=== PATIENT | female | born 1940 | race Caucasian/White ===

== ENCOUNTER 2017-12-16 11:21 | Emergency (ER) | payer OTHER ==
[~2017-12-16] VITALS: Ht 165.1 cm; Wt 74.8 kg
[~2017-12-16 11:21] MED LIST: ACETAMINOPHEN-1 EAC1 PO; ASPIR 8181 MG PO; BISACODYL10 MG RECTAL; COLACE 100 MG100 MG PO; FLEXERIL PO; LEVAQUIN 500 M500 M2 PO; MIRALAX17 GM PO; NOHOMEMEDICATIONS; NORCO 5-325 TA1 EACH PO; PREDNISONE 10 M10 MG PO; PROTONIX40 M1 PO; TRAMADOL 50 MG50 MG PO
[2017-12-16 12:20] LABS: ABSOLUTE BASOPHILS 0.1 thou/uL (0.0-0.2); ABSOLUTE EOSINOPHILS 0.1 thou/uL (0.0-0.7); ABSOLUTE MONOCYTES 0.3 thou/uL (0.0-1.2); ABSOLUTE NEUTROPHILS 4.6 thou/uL (1.6-8.1); BASOPHILS 1.3 %; EOSINOPHILS 1.3 %; HEMATOCRIT 41.9 % (37.0-47.0); HEMOGLOBIN 14.5 gm/dL (12.0-15.0); LYMPHOCYTES 28.9 %; MCH 31.2 pg (26.0-34.0); MCHC 34.7 g/dL (28.0-37.0); MCV 90.1 fL (80.0-100.0); NUCLEATED RBCS 0 /100WBC; PLATELET COUNT* 190 thou/uL (150-400); POLYS 64.5 %; RBC 4.65 mil/uL (4.20-5.00); RDW-CV 12.7 % (10.5-14.5); WBC 7.1 thou/uL (4.0-11.0)
[2017-12-16 12:26] LABS: APTT 26.2 Seconds (25.0-31.3); INR 1.1; PROTIME 10.4 Seconds (9.20-11.50)
[2017-12-16 12:26] LABS: URINE BILIRUBIN NEGATIVE (Negative); URINE BLOOD NEGATIVE (Negative); URINE CLARITY CLEAR; URINE COLOR YELLOW; URINE GLUCOSE-RANDOM NEGATIVE (Negative); URINE KETONES NEGATIVE (Negative); URINE LEUKOCYTES-REFLEX TRACE (Negative); URINE NITRITE-REFLEX NEGATIVE (Negative); URINE PROTEIN NEGATIVE (Negative); URINE SPECIFIC GRAVITY <= 1.005 (1.005-1.030); URINE UROBILINOGEN 0.2 E.U./dl (0.2-1.0)
[2017-12-16 12:28] LABS: ANION GAP 8 mmol/L (7-16); BUN 13 mg/dL (7-18); CALCIUM 8.8 mg/dL (8.5-10.1); CHLORIDE 106 mmol/L (98-107); CO2 27 mmol/L (21-32); CREATININE 0.8 mg/dL (0.6-1.3); GLUCOSE 99 mg/dL (70-99); POTASSIUM 3.8 mmol/L (3.5-5.1); SODIUM 141 mmol/L (136-145)
[2017-12-16 12:34] LABS: CASTS None Seen /LPF (None Seen); CRYSTALS None Seen /LPF (None Seen); SQUAMOUS 0-3 Few /LPF (0-3); URINE RBC None Seen /HPF (0-2); URINE WBC-REFLEX 0-5 Rare /HPF (0-5)
[2017-12-16 12:36] LABS: ALBUMIN 3.7 g/dL (3.4-5.0); ALKALINE PHOSPHATASE 36 U/L (46-116); SGOT 15 U/L (15-37); SGPT 19 U/L (30-65); TOTAL BILIRUBIN 0.5 mg/dL (<0.1-1.0); TROPONIN-I LEVEL <0.06 ng/mL (<0.06)
[2017-12-16 14:16] VITALS: BP 131/62
--- NOTE | 2017-12-17 12:37 | EKG ---
[place] [address] ELECTROCARDIOGRAM REPORT Name: DAVIDJUNIOR Landry Room: [facility]#: [id number] Admission: 12/16/17 Attend Phys: Discharge: 12/16/17 Date of : 44 Report #: [id number] THIS REPORT FOR: //name// [facility] ED Test Date: 2017-12-16 Test Time: 11:31:42 Pat Name: JUNIOR HERNANDEZ Department: Room: Gender: F Pt Sitter: CHELE : 1940 Requested By: Latesha Lindsay Order Number: [id number] Reading MD: Norris Saleh Measurements Intervals [place] Rate: 59 P: 33 NV: 172 QRS: 27 QRSD: 96 T: 48 QT: 459 QTc: 455 Interpretive Statements Sinus rhythm Probable left atrial enlargement Compared to ECG 12/01/2015 11:18:05 No significant changes Electronically Signed On 12-17-2017 12:37:02 CDT by Norris Saleh [email or web address] <ELECTRONICALLY SIGNED> By: Norris Saleh MD, [facility] 12/17/17 1237 1131 30 Norris Saleh MD, FACC /EPI
== END 2017-12-16 14:17 | disposition home or self-care (01) ==
LOC: M.ERS 11:21
PROVIDERS: Personal Emergency Response Attendant
DX: H57.8 Other specified disorders of eye and adnexa (principal); R53.1 Weakness; Z90.710 Acquired absence of both cervix and uterus; Z86.73 Personal history of transient ischemic attack (TIA), and cerebral infarction without residual deficits; Z88.5 Allergy status to narcotic agent; Z91.040 Latex allergy status

== ENCOUNTER → 2019-07-02 | Outpatient (CLI) | payer OTHER | LOC: M.ULTRA 08:49 | DX: N39.0 Urinary tract infection, site not specified (principal); Z79.82 Long term (current) use of aspirin; Z79.899 Other long term (current) drug therapy; Z87.442 Personal history of urinary calculi ==

== ENCOUNTER 2020-06-12 09:13 | Emergency (ER) | payer MEDICARE ==
[~2020-06-12] VITALS: Ht 165.1 cm; Wt 67.6 kg
[2020-06-12] MEDS ORDERED: ZOFRAN ODT4 MG DISSOLVE (10:56)
[2020-06-12] MEDS ORDERED: PERCOCET 5-3251 EACH PO (10:56)
[2020-06-12 11:19] VITALS: BP 140/73
== END 2020-06-12 11:19 | disposition home or self-care (01) ==
LOC: M.ERS 09:13
DX: S30.0XXA Contusion of lower back and pelvis, initial encounter (principal); Z90.710 Acquired absence of both cervix and uterus; Z87.01 Personal history of pneumonia (recurrent); Z88.5 Allergy status to narcotic agent; Z91.040 Latex allergy status; X50.9XXA Other and unspecified overexertion or strenuous movements or postures, initial encounter; Y93.89 Activity, other specified; Y92.89 Other specified places as the place of occurrence of the external cause; Y99.8 Other external cause status

== ENCOUNTER → 2020-07-02 | Outpatient (CLI) | payer MEDICARE ==
[~2020-07-02] MED LIST changes: +PERCOCET 5-3251 EACH PO; +ZOFRAN ODT4 MG DISSOLVE
== END ==
LOC: M.MRI 10:50
PROVIDERS: ATTEND Nurse Practitioner Family
DX: M51.26 Other intervertebral disc displacement, lumbar region (principal); M47.816 Spondylosis without myelopathy or radiculopathy, lumbar region; M51.36 Other intervertebral disc degeneration, lumbar region

== ENCOUNTER → 2020-07-10 | Outpatient (CLI) | payer MEDICARE ==
[2020-07-10 14:21] VITALS: BP 144/88
== END ==
LOC: M.INT 13:47
PROVIDERS: ATTEND Nurse Practitioner Family
DX: S22.088A Other fracture of T11-T12 vertebra, initial encounter for closed fracture (principal); W19.XXXA Unspecified fall, initial encounter; Y93.89 Activity, other specified; Y92.89 Other specified places as the place of occurrence of the external cause; Y99.8 Other external cause status; Z98.1 Arthrodesis status

== ENCOUNTER → 2020-07-14 | Outpatient (CLI) | payer MEDICARE ==
[~2020-07-14] VITALS: Ht 165.1 cm; Wt 66.7 kg
[2020-07-14 08:46] VITALS: BP 126/63
[2020-07-14 08:48] LABS: HEMATOCRIT 41.1 % (37.0-47.0); HEMOGLOBIN 14.5 gm/dL (12.0-15.0); MCH 32.2 pg (26.0-34.0); MCHC 35.2 g/dL (28.0-37.0); MCV 91.2 fL (80.0-100.0); MPV 7.7 fl. (7.2-11.1); RBC 4.51 mil/uL (4.20-5.00); RDW-CV 13.6 % (10.5-14.5)
[2020-07-14 08:55] LABS: CALCIUM 8.8 mg/dL (8.5-10.1); CREATININE 0.9 mg/dL (0.6-1.3)
[2020-07-14 08:58] LABS: APTT 22.9 Seconds (25.0-31.3); PROTIME 10.2 Seconds (9.20-11.50)
[2020-07-14 09:04] VITALS: BP 134/66
[2020-07-14 09:05] LABS: ALBUMIN 3.6 g/dL (3.4-5.0); TOTAL BILIRUBIN 0.4 mg/dL (<0.1-1.0); TOTAL PROTEIN 7.5 g/dL (6.4-8.2)
[2020-07-14 10:11] VITALS: BP 129/59
[2020-07-14 10:26] VITALS: BP 120/49
[2020-07-14 10:40] VITALS: BP 120/53
== END ==
LOC: M.INT 08:05
PROVIDERS: ATTEND Radiology Diagnostic Radiology
DX: S22.088A Other fracture of T11-T12 vertebra, initial encounter for closed fracture (principal); J43.9 Emphysema, unspecified; F17.210 Nicotine dependence, cigarettes, uncomplicated; Z90.710 Acquired absence of both cervix and uterus; Z98.890 Other specified postprocedural states; Z88.5 Allergy status to narcotic agent; Z91.040 Latex allergy status; Z88.8 Allergy status to other drugs, medicaments and biological substances; X58.XXXA Exposure to other specified factors, initial encounter; Y93.89 Activity, other specified; Y92.89 Other specified places as the place of occurrence of the external cause; Y99.8 Other external cause status

== ENCOUNTER → 2020-12-17 | Outpatient (CLI) | payer MEDICARE | LOC: M.RAD 09:00 | PROVIDERS: ATTEND Family Medicine | DX: M81.0 Age-related osteoporosis without current pathological fracture (principal); Z78.0 Asymptomatic menopausal state ==

== ENCOUNTER 2021-09-20 11:16 | Emergency (ER) | payer MEDICARE ==
[~2021-09-20] VITALS: Ht 165.1 cm; Wt 66.2 kg
[2021-09-20 13:09] LABS: INFLUENZA A ANTIGEN Negative (Negative); INFLUENZA B ANTIGEN Negative (Negative)
[2021-09-20 13:13] LABS: HEMATOCRIT 40.4 % (37.0-47.0)
[2021-09-20 13:15] LABS: HEMOGLOBIN 14.3 gm/dL (12.0-15.0); MCH 34.6 pg (26.0-34.0); MCHC 35.3 g/dL (28.0-37.0); RBC 4.12 mil/uL (4.20-5.00); RDW-CV 13.8 % (10.5-14.5); WBC 6.8 thou/uL (4.0-11.0)
[2021-09-20 13:23] LABS: CALCIUM 9.2 mg/dL (8.5-10.1); CREATININE 0.9 mg/dL (0.6-1.3); POTASSIUM 4.1 mmol/L (3.5-5.1)
[2021-09-20 13:28] LABS: ALBUMIN 3.5 g/dL (3.4-5.0); TOTAL BILIRUBIN 0.5 mg/dL (<0.1-1.0); TOTAL PROTEIN 7.9 g/dL (6.4-8.2)
[2021-09-20] MEDS ORDERED: PREDNISONE 20 M20 MG PO (14:35)
[2021-09-20] MEDS ORDERED: IPRAT-ALBUT 0.5-3 ML INH (14:36)
[2021-09-20 14:40] VITALS: BP 132/57
--- NOTE | 2021-09-21 12:27 | EKG ---
[place] [address] ELECTROCARDIOGRAM REPORT Name: JUNIOR HERNANDEZ Room: [facility]#: [id number] Admission: 09/20/21 Attend Phys: Discharge: 09/20/21 Date of : 44 Date of Service: 09/20/21 1138 Report #: [id number] THIS REPORT FOR: //name// [facility] ED Test Date: 2021-09-20 Test Time: 11:38:43 Pat Name: JUNIOR HERNANDEZ Department: Room: Gender: Emts: [facility] : 1940 Requested By: Mila Allen Order Number: [id number] : Bakari Cerrato Measurements Intervals [place] Rate: 85 P: 35 NM: 146 QRS: 46 QRSD: 83 T: 60 QT: 379 QTc: 451 Interpretive Statements Sinus rhythm Probable left atrial enlargement Compared to ECG 12/16/2017 11:31:42 No significant changes Electronically Signed On 09-21-2021 12:26:48 GRAIN SHOVELER by Bakari Cerrato [email or web address] <ELECTRONICALLY SIGNED> By: Bakari Cerrato MD, [facility] 09/21/21 1226 1138 1138 Bakari Cerrato MD, [facility] /EPI
== END 2021-09-20 14:45 | disposition home or self-care (01) ==
LOC: M.ERS 11:16
PROVIDERS: Physician Assistant
DX: J44.1 Chronic obstructive pulmonary disease with (acute) exacerbation (principal); Z20.822 Contact with and (suspected) exposure to COVID-19; Z90.710 Acquired absence of both cervix and uterus; Z79.899 Other long term (current) drug therapy; Z91.040 Latex allergy status; Z88.5 Allergy status to narcotic agent; Z88.6 Allergy status to analgesic agent

== ENCOUNTER 2021-11-11 10:05 | Inpatient (IN) | payer MEDICARE ==
[~2021-11-11] VITALS: Ht 165.1 cm; Wt 70.3 kg
[~2021-11-11 10:05] MED LIST changes: +IPRAT-ALBUT 0.5-3 ML INH; +PREDNISONE 20 M20 MG PO
[2021-11-11 10:10] VITALS: BP 147/78
[2021-11-11 10:40] LABS: URINE BILIRUBIN NEGATIVE (Negative); URINE BLOOD NEGATIVE (Negative); URINE CLARITY CLEAR; URINE COLOR YELLOW; URINE GLUCOSE-RANDOM NEGATIVE (Negative); URINE KETONES NEGATIVE (Negative); URINE LEUKOCYTES-REFLEX TRACE (Negative); URINE PROTEIN NEGATIVE (Negative); URINE SPECIFIC GRAVITY <= 1.005 (1.005-1.030); URINE UROBILINOGEN 0.2 E.U./dl (0.2-1.0)
[2021-11-11 10:41] LABS: URINE NITRITE-REFLEX POSITIVE (Negative)
[2021-11-11 10:41] LABS: CALCIUM 8.7 mg/dL (8.5-10.1); CREATININE 0.8 mg/dL (0.6-1.3)
[2021-11-11 10:42] LABS: HEMATOCRIT 46.2 % (37.0-47.0); HEMOGLOBIN 15.7 gm/dL (12.0-15.0); MCH 34.2 pg (26.0-34.0); MCV 100.5 fL (80.0-100.0); MPV 8.1 fl. (7.2-11.1); NUCLEATED RBCS 0 /100WBC; PLATELET COUNT* 117 thou/uL (150-400); RDW-CV 13.9 % (10.5-14.5)
[2021-11-11 10:45] LABS: WBC 1.6 thou/uL (4.0-11.0)
[2021-11-11 10:50] LABS: HYALINE CASTS 0-3 Few /LPF (None Seen); SQUAMOUS 4-10 Moderate /LPF (0-3); URINE WBC-REFLEX 6-15 Few /HPF (0-5)
[2021-11-11 10:50] LABS: ALBUMIN 3.8 g/dL (3.4-5.0); TOTAL BILIRUBIN 0.5 mg/dL (<0.1-1.0); TOTAL PROTEIN 7.2 g/dL (6.4-8.2)
[2021-11-11 10:51] LABS: CRYSTALS None Seen /LPF (None Seen); MUCUS 0-3 Light strn/LPF (None Seen); URINE RBC 3-10 Few /HPF (0-2)
[2021-11-11 11:11] LABS: ABSOLUTE LYMPHOCYTES 0.9 thou/uL (0.8-5.3); ABSOLUTE MONOCYTES 0.1 thou/uL (0.0-1.2); ABSOLUTE NEUTROPHILS 0.6 thou/uL (1.6-8.1)
[2021-11-11 11:12] LABS: PLATELET ESTIMATE ADEQUATE
--- NOTE | 2021-11-11 13:19 | EKG ---
[place] [address] ELECTROCARDIOGRAM REPORT Name: DAVIDJUNIOR Landry Room: [place] [address] ADM IN [facility]#: [id number] Admission: 11/11/21 Attend Phys: Mercedes Lozano, Discharge: Date of : 44 Date of Service: 11/11/21 1035 Report #: [id number] THIS REPORT FOR: //name// [facility] ED Test Date: 2021-11-11 Test Time: 10:35:52 Pat Name: JUNIOR HERNANDEZ Department: Room: [facility] Gender: F Insurance Administrator: ALEXIS : 1940 Requested By: Darnell Rodriguez Order Number: [id number] MD: Aaron Shukla Measurements Intervals [place] Rate: 63 P: 23 TN: 165 QRS: 27 QRSD: 88 T: 45 QT: 460 QTc: 471 Interpretive Statements Sinus rhythm Multiple ventricular premature complexes Probable left atrial enlargement Nonspecific T abnormalities, anterior leads Compared to ECG 09/20/2021 11:38:43 Ventricular premature complex(es) now present T-wave abnormality now present Electronically Signed On 11-11-2021 13:18:47 ON AIR TALENT by Aaron Shukla [email or web address] <ELECTRONICALLY SIGNED> By: Aaron Shukla MD, FACC 11/11/21 1318 1035 1035 Aaron Shukla MD, FAC /EPI
[2021-11-11 15:06] VITALS: BP 136/41
[2021-11-11 15:10] VITALS: BP 164/71
--- NOTE | 2021-11-11 19:34 | NUR ---
PT ADMITTED TO ROOM 205 VIA CART FROM ED AT APPROX 1510, REPORT RECEIVED FROM MARCELL GOETZ. PT AOX4 BUT FORGETFUL, ORIENTED TO ROOM AND CALL LIGHT, ENCOURAGED TO USE CALL LIGHT WHEN NEEDING TO GET UP. PT'S DAUGHTER CAME UP TO ROOM SHORTLY AFTER PT ARRIVAL, ADMISSION ASSESSMENT AND HX COMPLETED CHARTED, HOME MEDS UPDATED FAR PT AND DAUGHTER COULD REMEMBER. PT MADE DNR/DNI PER HER REQUEST.
[2021-11-11 21:50] VITALS: BP 145/52
[2021-11-12] VITALS: BP 121/64
[2021-11-12 04:00] VITALS: BP 132/46
[2021-11-12 05:08] LABS: ALBUMIN 3.1 g/dL (3.4-5.0); CALCIUM 8.2 mg/dL (8.5-10.1); CREATININE 0.8 mg/dL (0.6-1.3); MAGNESIUM 1.8 mg/dL (1.8-2.4); POTASSIUM 3.9 mmol/L (3.5-5.1); TOTAL BILIRUBIN 0.4 mg/dL (<0.1-1.0); TOTAL PROTEIN 5.8 g/dL (6.4-8.2)
[2021-11-12 07:54] LABS: HEMATOCRIT 31.4 % (37.0-47.0); MCH 35.1 pg (26.0-34.0); MCHC 34.8 g/dL (28.0-37.0); MCV 100.7 fL (80.0-100.0); MPV 8.1 fl. (7.2-11.1); RBC 3.12 mil/uL (4.20-5.00); RDW-CV 13.8 % (10.5-14.5)
[2021-11-12 07:59] LABS: HEMOGLOBIN 10.9 gm/dL (12.0-15.0)
[2021-11-12 08:00] VITALS: BP 103/75
[2021-11-12 08:00] LABS: WBC 1.9 thou/uL (4.0-11.0)
--- NOTE | 2021-11-12 09:13 | NUR ---
Nutrition: Pt admitted with UTI, back pain. Consult for poor intake. +small BMs. Wt near usual, 155#. Regular diet ordered. Albumin 3.1. RD will order Ensure Clear for added fliud and kcals. Encourage good hydration and fluid intake. Otherwise, mild nutrition risk.
[2021-11-12 12:00] VITALS: BP 138/53
--- NOTE | 2021-11-12 13:39 | NUR ---
CM ASSESSMENT ASSESSMENT COMPLETED WITH PT DAUGHTER (JULISSA [phone]). PT LIVES ALONE IN [place]. PT DAUGHTER LIVES TWO BLOCKS AWAY. PT DOES NOT USE ANY DME FOR MOBILITY. PT USES A NUBULIZER FOR COPD. PT IND WITH ADLS. PT DOES NOT HAVE ANY HX OF SNF, ARU, OR HH. PT NOT YET MED CLEAR, BUT CURRENT PLAN IS TO DC HOME WHEN CLEARED. CM TO FOLLOW.
[2021-11-12 16:00] VITALS: BP 133/55
[2021-11-12 20:30] VITALS: BP 152/56
[2021-11-12 23:03] LABS: ABSOLUTE LYMPHOCYTES 1.5 thou/uL (0.8-5.3); ABSOLUTE MONOCYTES 0.1 thou/uL (0.0-1.2); ABSOLUTE NEUTROPHILS 0.7 thou/uL (1.6-8.1); BASOPHILS 1.8 %; EOSINOPHILS 1.5 %; HEMATOCRIT 30.1 % (37.0-47.0); HEMOGLOBIN 10.4 gm/dL (12.0-15.0); LYMPHOCYTES 64.5 %; MCH 34.9 pg (26.0-34.0); MCHC 34.5 g/dL (28.0-37.0); MCV 101.1 fL (80.0-100.0); MONOCYTES 3.8 %; MPV 8.7 fl. (7.2-11.1); NUCLEATED RBCS 0 /100WBC; PLATELET COUNT* 131 thou/uL (150-400); POLYS 28.4 %; RBC 2.98 mil/uL (4.20-5.00); RDW-CV 13.7 % (10.5-14.5); WBC 2.4 thou/uL (4.0-11.0)
[2021-11-13] VITALS: BP 140/50
[2021-11-13 04:00] VITALS: BP 130/52
[2021-11-13 05:23] LABS: HEMATOCRIT 29.9 % (37.0-47.0); HEMOGLOBIN 10.4 gm/dL (12.0-15.0); MCH 35.1 pg (26.0-34.0); MCHC 34.6 g/dL (28.0-37.0); MCV 101.2 fL (80.0-100.0); RBC 2.95 mil/uL (4.20-5.00); RDW-CV 13.8 % (10.5-14.5)
[2021-11-13 05:50] LABS: CALCIUM 8.4 mg/dL (8.5-10.1); CREATININE 0.7 mg/dL (0.6-1.3); POTASSIUM 3.6 mmol/L (3.5-5.1)
--- NOTE | 2021-11-13 06:38 | NUR ---
Alert and oriented x 4 but she can be forgetful. She is up with stand by assist to the bathroom. She is voiding well. She did state that nadeen has back pain that she thinks is related to being constipated. It's been several days, possibly a week she says. I did her some miralax this am. Vitals are stable,heart rythm is sinus rythm. She has slept intermittenly.
[2021-11-13 08:00] VITALS: BP 161/50
[2021-11-13 09:31] LABS: ABSOLUTE LYMPHOCYTES 0.9 thou/uL (0.8-5.3); ABSOLUTE MONOCYTES 0.1 thou/uL (0.0-1.2); ABSOLUTE NEUTROPHILS 0.8 thou/uL (1.6-8.1); BASOPHILS 0.9 %; HEMATOCRIT 31.9 % (37.0-47.0); HEMOGLOBIN 11.2 gm/dL (12.0-15.0); LYMPHOCYTES 48.8 %; MCH 34.9 pg (26.0-34.0); MCHC 35.1 g/dL (28.0-37.0); MCV 99.6 fL (80.0-100.0); MONOCYTES 2.9 %; MPV 7.5 fl. (7.2-11.1); NUCLEATED RBCS 0 /100WBC; PLATELET COUNT* 128 thou/uL (150-400); POLYS 45.4 %; RBC 3.21 mil/uL (4.20-5.00); RDW-CV 13.9 % (10.5-14.5)
[2021-11-13 09:43] LABS: WBC 1.8 thou/uL (4.0-11.0)
[2021-11-13 12:00] VITALS: BP 154/72
--- NOTE | 2021-11-13 15:14 | NUR ---
CM FOLLOWUP PT NOT MED CLEAR. PT MAY NEED HH AT [place] AND REFERRED TO [facility] [phone]. CM TO FOLLOW.
[2021-11-13 16:26] VITALS: BP 144/59
[2021-11-13 20:00] VITALS: BP 151/64
[2021-11-14] VITALS: BP 149/62
[2021-11-14 04:00] VITALS: BP 126/57
--- NOTE | 2021-11-14 05:11 | NUR ---
Alert and oriented x 4. She is up with SBA to the BR. She said she feels much better since she had a BM yesterday.She does feeling better she states. She has slept well.
[2021-11-14 11:30] VITALS: BP 163/64
[2021-11-14 16:00] VITALS: BP 142/61
--- NOTE | 2021-11-14 18:07 | NUR ---
PT UP TO BATHROOM SEVERAL TIMES AND TAKING IN GOOD PO. PT CONTINUES ON IV ABXS. WILL CONTINUE TO ASSESS.
[2021-11-14 20:00] VITALS: BP 156/61
[2021-11-15] VITALS: BP 137/54
[2021-11-15 04:00] VITALS: BP 145/51
--- NOTE | 2021-11-15 04:59 | NUR ---
PATIENT SLEPT WELL DURING THIS SHIFT. PT ABLE TO REPOSITION HERSELF IN BED. PT UP TO BATHROOM WITH SLOW STEADY GAIT. PT WITH FLUIDS INFUSING PER DR ORDER. PT DENIES PAIN. PT ON ROOM AIR AND IS SR ON DIRECTOR COMPLIANCE. FREQUENTLY USED ITEMS AND CALL LIGHT WITHIN REACH. SIDERAILS UPX2. WILL CONTINUE TO MONITOR.
--- NOTE | 2021-11-15 07:25 | NUR ---
CHANGE OF SHIFT REPORT GIVEN PATIENT SEEN AT BEDSIDE, IN BED RESTING ASSUMED PATIENT CARE
[2021-11-15 08:00] VITALS: BP 154/62
[2021-11-15] MEDS ORDERED: ACIDOPHILUS1 EAC4 PO (09:37)
[2021-11-15] MEDS ORDERED: VITAMIN B-121000 MC2 SUBLING (09:37)
[2021-11-15] MEDS ORDERED: CEFDINIR300 MG PO (09:37)
[2021-11-15 11:03] VITALS: BP 154/62
--- NOTE | 2021-11-15 11:20 | NUR ---
PATIENT DISCHARGED TO HOME DC INSTRUCTIONS GIVEN IV AND HEART MONITOR REMOVED DISCHARGE PAPERWORK GIVEN PERSONAL BELONGIGNS RETURNED PATIENT ASSISTED OUT VIA WC TO [facility]
== END 2021-11-15 11:21 | disposition home or self-care (01) | DRG 372 ==
LOC: M.ERS 10:05 → M.TBA-ER 12:13 → M.2W 12:13
PROVIDERS: Family Medicine; Internal Medicine; Internal Medicine Hematology & Oncology; ADMIT Internal Medicine; ATTEND Internal Medicine
DX: A04.9 Bacterial intestinal infection, unspecified (principal); N39.0 Urinary tract infection, site not specified; D61.818 Other pancytopenia; D46.9 Myelodysplastic syndrome, unspecified; Z88.8 Allergy status to other drugs, medicaments and biological substances; Z91.040 Latex allergy status; K59.00 Constipation, unspecified; J43.9 Emphysema, unspecified; Z86.73 Personal history of transient ischemic attack (TIA), and cerebral infarction without residual deficits; B96.20 Unspecified Escherichia coli [E. coli] as the cause of diseases classified elsewhere; Z90.710 Acquired absence of both cervix and uterus; Z85.3 Personal history of malignant neoplasm of breast; Z20.822 Contact with and (suspected) exposure to COVID-19